=== PATIENT | female | born 2000 | race Caucasian/White ===

== ENCOUNTER 2018-04-27 01:04 | Emergency (ER) | payer SELFPAY ==
[2018-04-27 02:04] LABS: EGFR Non-African American 129.9 (>60)
--- NOTE | 2018-04-27 02:47 | ED ---
Substance Abuse/Use - HPI Summary HPI Summary: Patient is a 18-year-old female presenting to the ED by ambulance with alcohol intoxication. On arrival to the ED she was unresponsive to sternal stimuli or verbal stimuli. Ambulance stated pupils constricted. Unknown substance on board other than EtOH. Level V caveat as patient unresponsive. Nasal trumpet is placed and secured. Vital signs are stable. - History Of Current Complaint Chief Complaint: EDSubstanceAbuse Stated Complaint: ETOH Time Seen by Provider: 04/27/18 01:06 Hx Obtained From: Patient ?: No Ingestion History: Type/Name Of Drug - etoh Overdose Characteristics: Oral Severity Initially: Moderate Severity Currently: Moderate Aggravating Factor(s): Nothing Alleviating Factor(s): Nothing Associated Signs And Symptoms: Nausea, Vomiting, Intentional Ingestion - Risk Factor(s) Completed Suicide Risk Factors: Negative - Allergies/Home Medications Allergies/Adverse Reactions: Allergies Allergy/AdvReac Type Severity Reaction Status Date / Time Unable to Assess Allergy Verified 04/27/18 01:15 Home Medications: Home Medications Unobtainable 04/27/18 [History Confirmed 04/27/18] PMH/Surg Hx/FS Hx/Imm Hx Previously Healthy: Yes - Immunization History Hx Pertussis Vaccination: No Immunizations Up to Date: Unable to Obtain/Confirm Infectious Disease History: No Infectious Disease History: Denies: Traveled Outside the [place] in Last 30 Days - Social History Occupation: Student Lives: Dormitory/Roommates Alcohol Use: unknown Substance Use Type: Reports: Other Substance Use Comment - Amount & Last Used: unknown Smoking Status (MU): Unknown if Ever Smoked Review of Systems - ROS Summary Review of Systems Summary: UNABLE TO OBTAIN - LEVEL 5 CAVEAT All Other Systems Reviewed And Are Negative: Yes Physical Exam Triage Information Reviewed: Yes Vital Signs On Initial Exam: Initial Vitals Temp Pulse Resp BP Pulse Ox 98.2 F 68 20 110/68 99 04/27/18 01:15 04/27/18 01:15 04/27/18 01:15 04/27/18 01:15 04/27/18 01:15 Completion Of Physical Exam Limited Due To: Level 5 Appearance: Positive: Well-Nourished, Ill-Appearing Skin: Positive: Warm, Skin Color Reflects Adequate Perfusion Head/Face: Positive: Normal Head/Face Inspection Eyes: Positive: EOMI, KENYA, Conjunctiva Inflammed Neck: Positive: No Lymphadenopathy Respiratory/Lung Sounds: Positive: Clear to Auscultation, Breath Sounds Present Cardiovascular: Positive: RRR, Pulses are Symmetrical in both Upper and Lower Extremities Musculoskeletal: Positive: Normal, Strength/ROM Intact Neurological: Positive: Slurred Speech Psychiatric: Positive: Normal, Affect/Mood Appropriate AVPU Assessment: Alert Diagnostics - Vital Signs Vital Signs Temp Pulse Resp BP Pulse Ox 04/27/18 01:29 51 16 110/68 98 04/27/18 01:15 98.2 F 68 20 110/68 99 - Laboratory Lab Results: Lab Results 04/27/18 Range/Units 01:32 Sodium 138 (135-145) mmol/L Potassium 2.7 L* (3.5-5.0) mmol/L Chloride 111 (101-111) mmol/L Carbon Dioxide 17 L (22-32) mmol/L Anion Gap 10 (2-11) mmol/L BUN 7 (6-24) mg/dL Creatinine 0.59 (0.51-0.95) mg/dL Est GFR ( Amer) 157.2 (>60) Est GFR (Non-Af Amer) 129.9 (>60) BUN/Creatinine Ratio 11.9 (8-20) Glucose 97 (70-100) mg/dL Calcium 8.0 L (8.6-10.3) mg/dL Total Bilirubin 0.30 (0.2-1.0) mg/dL AST 23 (13-39) U/L ALT 16 (7-52) U/L Alkaline Phosphatase 42 (34-104) U/L Total Protein 6.1 L (6.4-8.9) g/dL Albumin 3.9 (3.2-5.2) g/dL Globulin 2.2 (2-4) g/dL Albumin/Globulin Ratio 1.8 (1-3) Serum Alcohol 405 H* (<10) mg/dL Result Diagrams: 04/27/18 01:32 Lab Statement: Any lab studies that have been ordered have been reviewed, and results considered in the medical decision making process. Course/Dx - Course Course Of Treatment: Patient is evaluated for alcohol intoxication. She arrives via ambulance and is nonresponsive to verbal or painful stimuli. Nasal trumpet is currently in place. EOMI. Pupils not constricted or dilated. Alcohol level obtained at 405. Hypokalemia noted at 2.7. Likely secondary to multiple emesis prior to arrival by ambulance. Will await sobriety. - Diagnoses Differential Diagnosis/HQI/PQRI: Positive: Alcohol Abuse Provider Diagnoses: Alcohol intoxication Discharge - Sign-Out/Discharge Documenting (check all that apply): Sign-Out Patient Signing out patient TO: Chris Mcmillan - Discharge Plan Condition: Fair - Billing Disposition and Condition Condition: FAIR
[2018-04-27] MEDS ORDERED: NS 0.9% 1000 ML* 1,000 ML IV ONE ×2 (02:48→08:02)
[2018-04-27] MEDS ORDERED: Potassium Chlor TAB* 20 MEQ TAB.ER PO ONE (06:05)
--- NOTE | 2018-04-27 06:07 | ED ---
Course/Dx - Course Course Of Treatment: Patient is evaluated for alcohol intoxication. She arrives via ambulance and is nonresponsive to verbal or painful stimuli. Nasal trumpet is currently in place. EOMI. Pupils not constricted or dilated. Alcohol level obtained at 405. Hypokalemia noted at 2.7. Likely secondary to multiple emesis prior to arrival by ambulance. Will await sobriety. - Diagnoses Provider Diagnoses: Alcohol intoxication, Hypokalemia Discharge - Sign-Out/Discharge Documenting (check all that apply): Patient Departure - Discharge Plan Condition: Improved Disposition: HOME Patient Education Materials: Hypokalemia (ED), Alcohol Intoxication (ED), Abuse of Alcohol (ED) Referrals: [facility] [Outside] - Billing Disposition and Condition Condition: IMPROVED Disposition: Home - Attestation Statements Document Initiated by Amos: No
[2018-04-27] MEDS ORDERED: KCL 10 MEQ/50 ML IVPREMIX* 10 MEQ/50 ML BAG IV ONE (08:00)
[2018-04-27 11:47] VITALS: BP 92/48
== END 2018-04-27 11:47 | disposition home or self-care (01) ==
LOC: ED 01:04
DX: F10.129 Alcohol abuse with intoxication, unspecified (principal); Y90.8 Blood alcohol level of 240 mg/100 ml or more; E87.6 Hypokalemia
CPT/HCPCS: 36415; 80053; 80307; 80320; 96361; 96365; 99284; A9270-GY; G0480; J3480